=== PATIENT | female | born 1955 | race Caucasian/White ===

== ENCOUNTER 2023-01-20 11:27 | Outpatient (CLI) | payer MEDICARE, SELFPAY ==
[2023-01-20 12:05] LABS: Alanine Aminotransferase 20 U/L (6-35); Albumin Level 4.3 g/dL (3.5-5.1); Alkaline Phosphatase 85 U/L (38-126); Aspartate Amino Transferase 26 U/L (14-36); Bilirubin,Total 0.5 mg/dL (0.2-1.3)
== END 2023-01-20 11:28 | disposition home or self-care (01) ==
PROVIDERS: PCP Nurse Practitioner Family; Visit Provider Nurse Practitioner
DX: K21.9 Gastro-esophageal reflux disease without esophagitis (principal); K29.60 Other gastritis without bleeding; R93.2 Abnormal findings on diagnostic imaging of liver and biliary tract
CPT/HCPCS: 36415; 80076

== ENCOUNTER 2023-02-05 08:00 | Outpatient (CLI) | payer MEDICARE, SELFPAY ==
--- NOTE | ~2023-02-05 | US_ITS ---
Limited Abdominal Sonogram: Real-time sonographic imaging of the right upper quadrant was performed. Clinical History: Abnormal findings of diagnostic imaging of liver No prior studies available for comparison at this institution. Findings: The liver appears normal with no evidence of mass lesion or bile duct dilatation. Main por jordana vein demonstrates normal direction of flow. The gallbladder is well distended, and appears normal with no evidence of gallstone or wall thickening. The common bile duct measures 5 mm. The visualize d pancreas, aorta, and IVC are unremarkable. Impression: No significant abnormality seen. Reviewed, dictated and finalized at location . Impression: No significant abnormality seen.
== END 2023-02-05 08:01 | disposition home or self-care (01) ==
LOC: ANHIMG 08:04
PROVIDERS: PCP Nurse Practitioner Family; Visit Provider Nurse Practitioner
DX: R93.2 Abnormal findings on diagnostic imaging of liver and biliary tract (principal); K29.60 Other gastritis without bleeding; K21.9 Gastro-esophageal reflux disease without esophagitis
CPT/HCPCS: 76705

== ENCOUNTER 2023-02-10 00:14 | Day surgery (SDC) | payer MEDICARE, SELFPAY ==
[2023-01-29 13:24] VITALS: BMI 31.4
[2023-02-10 10:03] VITALS: BP 136/60; PULSE 60; RESP 16; TEMP 36.3; O2SAT 98; BMI 30.7
[2023-02-10] MEDS: LACTATED RINGERS 1,000 ML 150 ML IV CONT (10:19)
--- NOTE | 2023-02-10 10:43 | WPDHPUPDATE1 ---
History and Physical Update Update Date/Time: 02/10/23 10:43 History and Physical has been reviewed, including an updated exam of the patient. There are NO changes in the patient's condition. Risks, benefits, and alternatives have been discussed and questions answered. Patient agrees to proceed with procedure.
--- NOTE | 2023-02-10 10:47 | WPDANESEPPF ---
Anes - Initial Pre Proc Eval Procedure: Operation Date: 02/10/23 11:30 Proposed Procedures p Esophagogastroduodenoscopy - Marcial Lepe MD Date/Time: 02/10/23 10:47 Surgeon: Marcial Lepe MD Pre Op Diagnosis: GERD, other gastritis without bleeding Patient Data Age: 67 Gender: F Height: 1.65 m Weight: 83.7 kg Last Vital Signs Temp 97.3 F L 02/10/23 10:03 Pulse 60 02/10/23 10:03 Resp 16 02/10/23 10:03 BP 136/60 02/10/23 10:03 Pulse Ox 98 02/10/23 10:03 O2 Del Method Room Air 02/10/23 10:03 Allergies Allergy/AdvReac Type Severity Reaction Status Date / Time Phenothiazines Allergy Mild Unknown Verified 02/10/23 10:01 Home Medications Medication Instructions Recorded Confirmed Type lansoprazole 30 mg capsule,delayed 30 mg PO DAILY #30 caps 01/20/23 02/10/23 Rx release (Prevacid) Lactobacillus 1 cap PO DAILY 01/29/23 02/10/23 History acidophilus-Bifidobac.animalis 2.5 billion cell capsule (Daily Probiotic) diphenhydramine HCl 50 mg capsule 50 mg PO HS 01/29/23 02/10/23 History docusate sodium 100 mg capsule 100 mg PO DAILY PRN Constipation 01/29/23 02/10/23 History (Colace) fluticasone propionate 50 1 spray intranasal DAILY 01/29/23 02/10/23 History mcg/actuation nasal spray,suspension guaifenesin 600 mg tablet, 600 mg PO BID 01/29/23 02/10/23 History extended release 12 hr (Mucinex) melatonin 10 mg tablet 10 mg PO HS 01/29/23 02/10/23 History metoprolol succinate 25 mg 25 mg PO DAILY 01/29/23 02/10/23 History tablet,extended release 24 hr montelukast 10 mg tablet 10 mg PO DAILY 01/29/23 02/10/23 History pravastatin 20 mg tablet 20 mg PO DAILY 01/29/23 02/10/23 History sucralfate 1 gram tablet 1 g PO BID 01/29/23 02/10/23 History trospium 60 mg capsule,extended 60 mg PO QAM 01/29/23 02/10/23 History release 24 hr Patient hx anesthesia problems: none Family hx anesthesia problems: none Results Review: All pre-operative results and documents have been reviewed as part of the pre-operative evaluation. [facility] Past Medical History Medical History (Updated 01/20/23 @ 11:27 by Zuleyma Amaya, [place]) Abnormal CT scan, gallbladder Diverticulosis Fundic gland polyps of stomach, benign Gastritis, bile acid reflux GERD (gastroesophageal reflux disease) Hx of adenomatous colonic polyps RUQ pain Social History Social History Smoking status: Never smoker Substance use type: does not use Living arrangements: with family Spiritual care concerns: No Anes - Eval Final PreProcedure Day of Procedure 02/10/23 10:47 Patient weight: obese Heart: regular rate and rhythm Lungs: clear to auscultation Airway: Mallampati scale class II Neurological: alert and oriented Last oral intake: >/= 8 hours ASA classification: II Emergent: no Anesthetic plan: proceed Anesthesia type and monitoring: general GIVS and standard monitoring Results Review: All pre-operative results and documents have been reviewed as part of the pre-operative evaluation. Informed Consent: The patient's anesthetic plan and its attendant risks and benefits were discussed with the patient/family/POA. Questions were solicited and answers provided to the satisfaction of the patient/family/POA.
[2023-02-10 11:32] VITALS: BP 115/58; PULSE 57; RESP 19; O2SAT 96
[2023-02-10 11:42] VITALS: BP 117/64; PULSE 59; RESP 24; O2SAT 97
[2023-02-10 11:52] VITALS: BP 123/73; PULSE 56; RESP 18; O2SAT 99
== END 2023-02-10 12:09 | disposition home or self-care (01) ==
PROVIDERS: PCP Nurse Practitioner Family; Visit Provider Internal Medicine Gastroenterology
PROC: 0DJ08ZZ Inspection of Upper Intestinal Tract, Via Natural or Artificial Opening Endoscopic (ICD-10-PCS; CPT 43235; principal; 2023-02-10 11:30)
DX: K21.9 Gastro-esophageal reflux disease without esophagitis (principal); E66.9 Obesity, unspecified; Z68.30 Body mass index [BMI] 30.0-30.9, adult
CPT/HCPCS: 43239; 87081; J2704; J7120

== ENCOUNTER 2024-01-26 13:39 | Outpatient (CLI) | payer MEDICARE, SELFPAY ==
--- NOTE | ~2024-01-26 | MR_ITS ---
MRI of the brain Clinical History: Fatigue Technique: Axial and sagittal T1-weighted images were acquired. These were followed by axial T2-weigh emeka, diffusion weighted, gradient, and FLAIR images. Following intravenous administration of 17 cc Mu ltiHance gadolinium, T1-weighted fat-sat imaging was performed in the axial and coronal planes. Findings: There is no acute infarct, intracranial hemorrhage, or mass lesion. There are minimal chron ic white matter changes in the periventricular white matter bilaterally. Ventricles and subarachnoid spaces are unremarkable. Orbits are unremarkable. Paranasal sinuses and m astoid air cells are clear. Major intracranial flow voids are intact. Sagittal midline structures are intact. No abnormal postcontrast enhancement identified. IMPRESSION: Minimal chronic microvascular ischemic change, otherwise unremarkable exam. Reviewed, dictated and finalized at location M.
== END 2024-01-26 13:40 ==
LOC: MICIMG 13:40
PROVIDERS: PCP Nurse Practitioner Family; Visit Provider Nurse Practitioner Family
DX: R53.83 Other fatigue (principal); I67.82 Cerebral ischemia; K13.21 Leukoplakia of oral mucosa, including tongue; D70.9 Neutropenia, unspecified; G47.00 Insomnia, unspecified; R51.9 Headache, unspecified
CPT/HCPCS: 70553; A9577

== ENCOUNTER 2024-03-10 09:16 | Outpatient (CLI) | payer MEDICARE, SELFPAY | END 2024-03-10 09:17 | disposition home or self-care (01) | LOC: ANHLAB 09:18 | PROVIDERS: PCP Nurse Practitioner Family; Visit Provider Nurse Practitioner | DX: K21.9 Gastro-esophageal reflux disease without esophagitis (principal) | CPT/HCPCS: 36415; 82607 ==